=== PATIENT | female | born 1990 | race American Indian/Alaskan Native ===

== ENCOUNTER 2018-06-13 16:54 | Emergency (ER) | payer MEDICAID ==
[~2018-06-13] VITALS: Ht 162.6 cm; Wt 54.4 kg
[2018-06-13 17:31] VITALS: BP 105/62
--- NOTE | 2018-06-13 17:31 | NUR ---
Patient discharged to home in stable conditon. Written and verbal after care instructions given. Patient verbalizes understanding of instructions.
== END 2018-06-13 17:32 | disposition home or self-care (01) ==
LOC: ER 16:54
DX: M54.5 Low back pain (principal)
CPT/HCPCS: A4663